=== PATIENT | male | born 1975 | race Caucasian/White ===

== ENCOUNTER 2018-08-20 19:12 | Emergency (ER) | payer BC ==
[~2018-08-20] VITALS: Ht 180.3 cm; Wt 87.1 kg
[2018-08-20 19:24] VITALS: BP 143/102
[2018-08-20] MEDS ORDERED: LIDOCAINE WITH 8.4% SOD BICARB 3 ML DISP.SYRIN. IJ ONE (19:45)
[2018-08-20] MEDS ORDERED: DIPHTH,PERTUSS(ACELL),TET TOX 0.5 ML DISP.SYRIN. VAX IM ONE (19:45)
--- NOTE | 2018-08-20 20:28 | PHYS DOC ---
Past History Past Medical History: Hypertension Past Surgical History: Other Alcohol Use: Occasionally Drug Use: None Adult General Chief Complaint Chief Complaint: LACERATION/AVULSION HPI HPI Patient is a 43-year-old male who presents with laceration to his left ring finger that he sustained by cutting himself on a piece of sheet metal. Patient indicates that he is not up-to-date on his tetanus. He does complain of some mild tingling to the tip of his ring finger. He rates pain as moderate. He states that nothing improves the pain. Review of Systems Review of Systems Constitutional: Denies fever or chills [] Respiratory: Denies cough or shortness of breath [] Cardiovascular: No additional information not addressed in HPI [] Musculoskeletal: Complains of left ring finger pain and laceration[] Integument: Laceration to left ring finger[] Current Medications Current Medications Current Medications Medications (Trade) Dose Ordered Sig/Tirso Start Time Stop Time Status Last Admin Dose Admin Diphtheria/ Tetanus/Acell Pertussis (Boostrix) 0.5 ml ONCE ONCE 08/20/18 19:45 08/20/18 19:46 DC 08/20/18 20:21 0.5 ML Lidocaine/Sodium Bicarbonate (Buffered Lidocaine 1%) 3 ml 1X ONCE 08/20/18 19:45 08/20/18 19:46 DC 08/20/18 19:45 3 ML Allergies Allergies Allergies Coded Allergies Type Severity Reaction Last Updated Verified No Known Drug Allergies 08/20/18 No Physical Exam Physical Exam Constitutional: Well developed, well nourished, no acute distress, non-toxic appearance. [] Cardiovascular:Heart rate regular rhythm, no murmur [] Lungs & Thorax: Bilateral breath sounds clear to auscultation [] Skin: Left index finger demonstrates approximately 1.5 cm laceration just proximal to the DIP joint on the lateral palmar aspect of the finger extending around to the lateral dorsal surface. Laceration is linear with sharp margins. No foreign bodies identified. Tendon exam is normal. There is loss of fine touch distal to the wound. Laceration extends into subcutaneous tissue. [] Extremities: No cyanosis, no clubbing, ROM intact, no edema. Laceration as noted above. [] Current Patient Data Vital Signs Vital Signs Date Time Temp Pulse Resp B/P (MAP) Pulse Ox O2 Delivery O2 Flow Rate FiO2 08/20/18 19:24 98.5 74 16 97 Room Air EKG EKG [] Radiology/Procedures Radiology/Procedures [] Course & Med Decision Making Course & Med Decision Making Pertinent Labs and Imaging studies reviewed. (See chart for details) Laceration Repair by me: Anesthesia: 1% lidocaine locally Location: Left ring finger Tendon/Joint/Nerves: No injury Foreign body: None detected after copious irrigation and exploration Technique: 5 Simple Interrupted Sutures using 5-0 Ethilon suture material Complexity: No subcutaneous sutures/mucosal repair/edge excision Post Closure Length: 1.75 cm Patient's bleeding was easily controlled in the department and there is no indication of anemia. No evidence of compartment syndrome, neurologic injury, vascular injury, open joint, tendon laceration, or foreign body. Patient is appropriate for outpatient follow up. 48 hour wound check. Scar minimization instructions given. Dragon Disclaimer Dragon Disclaimer This electronic medical record was generated, in whole or in part, using a voice recognition dictation system. Departure Departure: Impression: Primary Impression: Finger laceration Disposition: HOME, SELF-CARE Condition: STABLE Referrals: PCP,NO (PCP) Patient Instructions: Laceration Care, Adult Problem Qualifiers Primary Impression: Finger laceration Encounter type: initial encounter Finger: ring finger Damage to nail status : without damage Foreign body presence: without foreign body Laterality: left Qualified Codes: S61.215A - Laceration without foreign body of left ring finger without damage to nail, initial encounter RADHA CARRASCO Jr., DO Aug 20, 2018 20:28
== END 2018-08-20 20:32 | disposition home or self-care (01) ==
LOC: ER 19:12
DX: S61.215A Laceration without foreign body of left ring finger without damage to nail, initial encounter (principal); I10 Essential (primary) hypertension; X78.8XXA Intentional self-harm by other sharp object, initial encounter; Y93.89 Activity, other specified; Y92.89 Other specified places as the place of occurrence of the external cause; Y99.8 Other external cause status
CPT/HCPCS: 12001; 90471; 90715; 99283-25